=== PATIENT | male | born 1995 | race Caucasian/White ===

== ENCOUNTER 2016-06-07 18:54 | Inpatient (IN) | payer BC ==
[~2016-06-07] VITALS: Ht 172.7 cm; Wt 62.9 kg
[2016-06-07] MEDS ORDERED: LIDOCAINE 1%, 10ML INFIL ONE (19:30)
[2016-06-07] MEDS ORDERED: SODIUM CHLORIDE FLUSH 10ML SYR IVF ONE (20:00)
[2016-06-07] MEDS ORDERED: ONDANSETRON 2MG/ML, 2ML IVPush ONE (20:00)
[2016-06-07] MEDS ORDERED: HYDROmorphone 1 MG/ML, 1ML IVPush PRN (20:00)
[2016-06-07] MEDS ORDERED: ONDANSETRON 2MG/ML, 2ML ONE (20:07)
[2016-06-07] MEDS ORDERED: HYDROmorphone 1 MG/ML, 1ML ONE (20:07)
[2016-06-07] MEDS ORDERED: SODIUM CHLORIDE 0.9% 1,000ML IVBOLUS ONE (20:30)
[2016-06-07] MEDS ORDERED: LIDOCAINE 1%, 20ML ONE (20:52)
[2016-06-07] MEDS ORDERED: LIDOCAINE 1%, 20ML SQ ONE (21:00)
[2016-06-07] MEDS ORDERED: SODIUM CHLORIDE FLUSH 10ML SYR IVF PRN (22:30)
[2016-06-07] MEDS ORDERED: BACITRACIN ZINC OINT 500U/GM, 0.9 GM ONE (22:31)
[2016-06-07] MEDS ORDERED: ONDANSETRON 2MG/ML, 2ML IVPush PRN (23:45)
[2016-06-08] MEDS: MORPHINE SULFATE 4 MG/ML, 1ML IVPush PRN ×5 (01:53→20:57)
[2016-06-08] MEDS: CEFAZOLIN PMX 1GM/50ML 50 ML IV SCH ×3 (01:53→17:26)
[2016-06-08] MEDS: D5%-0.9% NACL 1,000 ML IV SCH ×2 (01:53→16:28)
[2016-06-08 03:43] VITALS: BP 159/85
[2016-06-08 07:20] VITALS: BP 135/72
[2016-06-08 08:32] LABS: HEMOGLOBIN 14.8 g/dL (13.7-18.0)
[2016-06-08 08:45] LABS: BLOOD UREA NITROGEN 10 mg/dL (7-18)
[2016-06-08 12:40] VITALS: BP 149/93
[2016-06-08 19:38] VITALS: BP 147/89
[2016-06-09] MEDS: CEFAZOLIN PMX 1GM/50ML 50 ML IV SCH ×3 (01:45→17:12)
[2016-06-09 02:06] VITALS: BP 146/97
[2016-06-09] MEDS ORDERED: LIDOCAINE 1%-EPI 1:100K, 50ML ONE (06:21)
[2016-06-09] MEDS ORDERED: OXYMETAZOLINE NASAL SPRAY 0.05%, 15ML ONE (06:21)
[2016-06-09] MEDS ORDERED: BALANCED SALT OPHTH IRRIG SOLN 18ML ONE (06:22)
[2016-06-09 06:39] VITALS: BP 137/92
[2016-06-09] MEDS: D5%-0.9% NACL 1,000 ML IV SCH (07:00)
[2016-06-09] MEDS ORDERED: MIDAZOLAM 1 MG/ML, 2ML ONE (07:40)
[2016-06-09] MEDS ORDERED: FENTANYL PF 250 MCG/5ML ONE ×2 (07:40→11:32)
[2016-06-09] MEDS ORDERED: GLYCOPYRROLATE 0.2MG/1ML ONE (07:55)
[2016-06-09] MEDS ORDERED: CEFAZOLIN 1,000 MG ONE (07:55)
[2016-06-09] MEDS ORDERED: ONDANSETRON 2MG/ML, 2ML ONE (07:55)
[2016-06-09] MEDS ORDERED: NEOSTIGMINE 1 MG/ML, 10ML ONE (07:55)
[2016-06-09] MEDS ORDERED: ROCURONIUM 10 MG/ML ONE ×4 (07:55)
[2016-06-09] MEDS ORDERED: PROPOFOL 10 MG/ML, 20ML ONE (07:55)
[2016-06-09] MEDS ORDERED: SUCCINYLCHOLINE 20 MG/ML, 10ML ONE (07:55)
[2016-06-09] MEDS ORDERED: DEXAMETHASONE 4 MG/ML, 5ML ONE (07:55)
[2016-06-09] MEDS ORDERED: DEXMEDETOMIDINE 200 MCG/2 ML ONE (07:55)
[2016-06-09] MEDS ORDERED: HYDROmorphone 1 MG/ML, 1ML ONE (08:36)
[2016-06-09] MEDS ORDERED: PROMETHAZINE 25 MG/ML, 1ML IV PRN (10:00)
[2016-06-09] MEDS ORDERED: HYDROcodone/APAP 7.5-325MG/15ML UDC PO PRN (10:00)
[2016-06-09] MEDS ORDERED: MEPERIDINE/PF 25MG/0.5ML IVPush PRN (10:00)
[2016-06-09] MEDS ORDERED: FENTANYL PF 100 MCG/2ML IV PRN (10:00)
[2016-06-09] MEDS ORDERED: HYDROmorphone 1 MG/ML, 1ML IV PRN (10:00)
[2016-06-09] MEDS ORDERED: KETOROLAC 30 MG/1 ML IV PRN (10:00)
[2016-06-09] MEDS ORDERED: MIDAZOLAM 1 MG/ML, 2ML IV PRN (10:00)
[2016-06-09] MEDS ORDERED: OXYcodone 5 MG/5 ML ORAL.SOL UDC PO PRN (10:00)
[2016-06-09] MEDS ORDERED: ONDANSETRON 2MG/ML, 2ML IVPush PRN ×2 (10:00→15:30)
[2016-06-09] MEDS ORDERED: ACETAMINOPHEN 325 MG TABLET PO PRN (10:00)
[2016-06-09] MEDS ORDERED: FENTANYL PF 100 MCG/2ML ONE (13:16)
[2016-06-09] MEDS ORDERED: OXYcodone 5 MG/5 ML ORAL.SOL UDC ONE (13:16)
[2016-06-09] MEDS ORDERED: ACETAMINOPHEN 650 MG/20.3 ML UDC ONE (13:16)
[2016-06-09 14:00] VITALS: BP 143/77
[2016-06-09] MEDS ORDERED: MORPHINE SULFATE 4 MG/ML, 1ML IVPush PRN (15:30)
[2016-06-09] MEDS ORDERED: LACTATED RINGERS 1,000 ML IV SCH (15:30)
[2016-06-09] MEDS: LACTATED RINGERS 1,000 ML IV SCH (17:12)
[2016-06-09] MEDS: TOBRAMYCIN OPHTH 5ML OP SCH ×2 (17:12→20:58)
[2016-06-09 20:31] VITALS: BP 160/80
[2016-06-09 23:23] VITALS: BP 153/92
[2016-06-10] MEDS: CEFAZOLIN PMX 1GM/50ML 50 ML IV SCH ×3 (01:42→17:39)
[2016-06-10 03:48] VITALS: BP 147/78
[2016-06-10] MEDS: TOBRAMYCIN OPHTH 5ML OP SCH ×4 (06:04→20:34)
[2016-06-10 07:00] VITALS: BP 150/82
[2016-06-10] MEDS: LACTATED RINGERS 1,000 ML IV SCH ×2 (09:19→20:45)
[2016-06-10 13:59] VITALS: BP 135/81
[2016-06-10 20:01] VITALS: BP 145/70
[2016-06-11] MEDS: CEFAZOLIN PMX 1GM/50ML 50 ML IV SCH ×2 (01:32→09:00)
[2016-06-11 02:27] VITALS: BP 135/76
[2016-06-11] MEDS: TOBRAMYCIN OPHTH 5ML OP SCH ×2 (06:09→11:46)
[2016-06-11 06:57] VITALS: BP 134/73
[2016-06-11] MEDS: LACTATED RINGERS 1,000 ML IV SCH (10:05)
[2016-06-11] MEDS ORDERED: CEPH500T PO (11:12)
[2016-06-11] MEDS ORDERED: HYDR-882 PO (11:13)
[2016-06-11 11:50] VITALS: BP 142/81
== END 2016-06-11 12:10 | disposition home or self-care (01) | DRG 131 ==
LOC: ED 22:23 → EDIP 22:26 → 4NOR 23:35
PROVIDERS: ADMIT Otolaryngology Facial Plastic Surgery; ATTEND Otolaryngology Facial Plastic Surgery
PROC: 0T9B70Z Drainage of Bladder with Drainage Device, Via Natural or Artificial Opening (ICD-10-PCS; 2016-06-08)
PROC: 0NSS04Z (ICD-10-PCS; 2016-06-09)
PROC: 0NSR04Z Reposition Maxilla with Internal Fixation Device, Open Approach (ICD-10-PCS; principal; 2016-06-09 08:00)
DX: S02.412A LeFort II fracture, initial encounter for closed fracture (principal); S02.31XA Fracture of orbital floor, right side, initial encounter for closed fracture; S02.32XA Fracture of orbital floor, left side, initial encounter for closed fracture; S01.81XA Laceration without foreign body of other part of head, initial encounter; S01.511A Laceration without foreign body of lip, initial encounter; X58.XXXA Exposure to other specified factors, initial encounter; Y93.89 Activity, other specified; Y92.89 Other specified places as the place of occurrence of the external cause; Y99.8 Other external cause status; S02.411A LeFort I fracture, initial encounter for closed fracture
CPT/HCPCS: 13152; 36415; 70450; 70486; 72125; 80048; 81001; 85025; 96374; 96375; C1713; J0690; J1100; J1170; J2250; J2405; J2704; J2710; J3010; J3490; J7042; J0330; J7030; J7120

== ENCOUNTER → 2017-01-19 | Outpatient (CLI) | payer BC ==
[~2017-01-19] MED LIST: CEPH500T PO; HYDR-882 PO; NONE PER PT
[2017-01-19 11:15] LABS: HEMATOCRIT 49.6 % (39.2-51.8); HEMOGLOBIN 16.8 g/dL (13.7-18.0); WHITE BLOOD COUNT 6.3 x10^3/uL (3.4-10)
== END | disposition home or self-care (01) ==
LOC: STAR 10:18
PROVIDERS: ATTEND Otolaryngology Facial Plastic Surgery
DX: Z01.818 Encounter for other preprocedural examination (principal); S02.411A LeFort I fracture, initial encounter for closed fracture; S02.412A LeFort II fracture, initial encounter for closed fracture; X58.XXXA Exposure to other specified factors, initial encounter; Y93.89 Activity, other specified; Y92.89 Other specified places as the place of occurrence of the external cause; Y99.8 Other external cause status
CPT/HCPCS: 36415; 85025

== ENCOUNTER 2017-01-24 09:59 | Day surgery (SDC) | payer BC ==
[~2017-01-24] VITALS: Ht 172.7 cm; Wt 63.0 kg
[~2017-01-24 09:59] MED LIST changes: +BALANCED SALT OPHTH IRRIG SOLN 18ML ONE; +EPINEPHRINE 1 MG/ML, 1ML ONE; +LIDOCAINE/PF 1%, 30ML ONE; +OXYMETAZOLINE NASAL SPRAY 0.05%, 15ML ONE
[2017-01-24] MEDS ORDERED: LACTATED RINGERS 1,000 ML IV SCH (10:13)
[2017-01-24 10:26] VITALS: BP 113/67
[2017-01-24] MEDS ORDERED: MIDAZOLAM 1 MG/ML, 2ML ONE (11:47)
[2017-01-24] MEDS ORDERED: FENTANYL PF 100 MCG/2ML ONE ×3 (11:47→13:05)
[2017-01-24] MEDS ORDERED: PROPOFOL 10 MG/ML, 20ML ONE (11:48)
[2017-01-24] MEDS ORDERED: ROCURONIUM 10 MG/ML,10ML ONE (11:50)
[2017-01-24] MEDS ORDERED: SUCCINYLCHOLINE 20 MG/ML, 10ML ONE (11:51)
[2017-01-24] MEDS ORDERED: CEFAZOLIN 1,000 MG ONE ×2 (11:52)
[2017-01-24] MEDS ORDERED: FENTANYL PF 100 MCG/2ML IV PRN (12:30)
[2017-01-24] MEDS ORDERED: HYDROmorphone 1 MG/ML, 1ML IV PRN (12:30)
[2017-01-24] MEDS ORDERED: PROMETHAZINE 25 MG/ML, 1ML IV PRN (12:30)
[2017-01-24] MEDS ORDERED: ACETAMINOPHEN 325 MG TABLET PO PRN (12:30)
[2017-01-24] MEDS ORDERED: OXYcodone 5 MG/5 ML ORAL.SOL UDC PO PRN (12:30)
[2017-01-24] MEDS ORDERED: ONDANSETRON 2MG/ML, 2ML IVPush PRN (12:30)
[2017-01-24] MEDS ORDERED: ACETAMINOPHEN 650 MG/20.3 ML UDC ONE (13:05)
[2017-01-24] MEDS ORDERED: OXYcodone 5 MG/5 ML ORAL.SOL UDC ONE (13:05)
[2017-01-24] MEDS ORDERED: MEPERIDINE/PF 25MG/0.5ML ONE (13:05)
[2017-01-24] MEDS ORDERED: MEPERIDINE/PF 25MG/0.5ML IVPush PRN (13:30)
== END 2017-01-24 15:10 ==
LOC: OUT 09:59
PROVIDERS: ATTEND Otolaryngology Facial Plastic Surgery
DX: Z47.2 Encounter for removal of internal fixation device (principal)
CPT/HCPCS: 20680; J0171; J0330; J2175; J2250; J2704; J3010; J3490; J7120; J0690